=== PATIENT | male | born 1975 | race African-American/Black ===

== ENCOUNTER 2016-09-22 16:43 | Emergency (ER) | payer OTHER ==
[~2016-09-22] VITALS: Ht 165.1 cm; Wt 69.2 kg
[2016-09-22] MEDS ORDERED: MEDROL DOSEPAK4 MG PO (19:21)
[2016-09-22] MEDS ORDERED: FLEXERIL10 MG PO (19:23)
[2016-09-22 19:36] VITALS: BP 128/82
== END 2016-09-22 19:38 | disposition home or self-care (01) ==
LOC: EXP 16:43 → EME 16:43 → EXP 19:38
DX: R20.0 Anesthesia of skin (principal); F17.200 Nicotine dependence, unspecified, uncomplicated
CPT/HCPCS: 70450; 72125; 99281; 99283

== ENCOUNTER 2016-10-12 13:06 | Emergency (ER) | payer OTHER ==
[~2016-10-12] VITALS: Ht 165.1 cm; Wt 72.2 kg
[~2016-10-12 13:06] MED LIST: FLEXERIL10 MG PO; MEDROL DOSEPAK4 MG PO
[2016-10-12 13:52] LABS: BILIRUBIN NEGATIVE; BLOOD NEGATIVE; COLOR YELLOW ((YELLOW)); GLUCOSE (STRIP) NEGATIVE; KETONES NEGATIVE; LEUKOCYTES NEGATIVE; NITRITE NEGATIVE; PROTEIN (STRIP) NEGATIVE; SPECIFIC GRAVITY 1.011 (1.000-1.030)
[2016-10-12 13:53] LABS: ADD MIUA? NO
[2016-10-12 14:16] VITALS: BP 131/99
[2016-10-14 12:58] LABS: CHLAMYDIA TRACHOMATIS NEGATIVE; NEISSERIA GONORRHOEAE NEGATIVE
== END 2016-10-12 14:16 | disposition home or self-care (01) ==
LOC: EME 13:06
PROVIDERS: Physician Assistant
DX: R30.0 Dysuria (principal); Z11.3 Encounter for screening for infections with a predominantly sexual mode of transmission
CPT/HCPCS: 81003; 87491; 87591; 99281; 99283; J0696